=== PATIENT | female | born 1985 | race Caucasian/White ===

== ENCOUNTER 2024-02-20 10:18 | Emergency (ER) | payer OTHER, SELFPAY ==
[2024-02-20 10:27] VITALS: BP 116/89; PULSE 90; TEMP 37.4; O2SAT 97; BMI 34.9
[2024-02-20 10:58] LABS: Influenza Virus A Antigen Negative; Influenza Virus B Antigen Negative; Internal Control Within Normal Limits; SARS-CoV-2 Ag NEGATIVE (NEGATIVE)
--- NOTE | 2024-02-20 11:37 | XR_ITS ---
The [address] [address] Patient Name: CHERELLE PORTILLO MRN: [id number] date: 1985 Sex: F Assigned Patient Location: ER Current Patient Location: Accession/Order Number: [id number] Exam Date: 02/20/2024 11:56 Report Date: 02/20/2024 13:13 At the request of: ALLISON MONTALVO Procedure: XR chest 2V EXAMINATION: XR chest 2V HISTORY: sob COMPARISON: No relevant comparison available. TECHNIQUE: PA and lateral FINDINGS: LUNGS: No significant pulmonary parenchymal abnormalities. VASCULATURE: No increased pulmonary vasculature. PLEURA: No pneumothorax, effusion, or pleural thickening. CARDIAC: No cardiomegaly or cardiac silhouette abnormality. MEDIASTINUM: No visible mass or adenopathy. BONES: No fracture or visible bone lesion. OTHER: Negative. XR/XR chest 2V IMPRESSION: No acute cardiopulmonary abnormality Electronically authenticated by: HERNAN GALICIA Date: 02/20/2024 13:13
[2024-02-20 11:42] VITALS: BP 121/84; PULSE 94; TEMP 38.3; O2SAT 96
[2024-02-20] MEDS: ALBUTEROL SULFATE 2.5 MG/3 ML VIAL NEB IH (11:44)
[2024-02-20 11:45] VITALS: PULSE 82; O2SAT 96
--- NOTE | 2024-02-20 12:55 | ED.GENADUL1 ---
HPI HPI - General Adult General Chief complaint: Upper Respiratory Infection Stated complaint: FEVER/URTI COMPLAINTS Time Seen by Provider: 02/20/24 10:49 Source: patient Mode of arrival: walk-in History of Present Illness HPI narrative: Patient is a 38-year-old female who is presenting to the ER today with chief complaint cough, congestion, sore throat. This has been ongoing for 6 to 7 days. Patient states that she has been using Motrin, she is not a smoker. Patient has no headache at this time, no neck pain. Mild facial pressure to bilateral frontal and maxillary sinuses. Patient feels like there is crackling in coarseness to her upper airway. Patient has no abdominal pain, nausea or vomiting. Patient has no bowel or bladder changes. Patient has no rash. Patient states she does have albuterol inhaler at home. Patient's PCP is count includes the [facility]. Patient has no acute complaints at this time. No recent traveling. Patient is a auto cleaner, she has not inhaled any recent chemicals that are new or irritating. All systems are negative except as noted/marked. All systems reviewed and otherwise negative. Nurses note and vital signs reviewed and patient is not hypoxic. General: The patient appears well and in no apparent distress. Patient is resting comfortably on cart. Patient is not toxic, lethargic, or listless Skin: Warm, dry, no pallor noted. There is no rash noted. No petechiae, purpura. Head: Normocephalic, atraumatic;' patient has mild tenderness palpation to bilateral frontal and maxillary sinuses. Eye: Normal conjunctiva, no drainage, EOMI. PERRL Ears, Nose, Mouth, and Throat: oral mucosa is moist. Mild cobblestoning seen. Patient has clear drainage from the posterior pharynx, Nares patent. Mouth without vesicles. Cardiovascular: Regular Rate and Rhythm, no murmur, gallop, rub Respiratory: Patient is in no distress, no accessory muscle use, lungs are clear to auscultation, no wheezing, rales or rhonchi, minimal coarseness bilateral upper lungs equal, bilateral, possibly resonating from upper airway. Equal breath sounds. No tracheal deviation. No splinting. Back: non-tender, no CVA tenderness bilaterally to percussion. No CT LS midline pain GI: no tenderness to palpation, no masses appreciated. No rebound, guarding, or rigidity noted. No distention Musculoskeletal: Patient has full range of motion of all of the extremities, no motor, sensory, or focal neurological deficits Neurological: A&O x4, normal speech Psychiatric: Cooperative Related Data Previous Rx's ?Medication ?Instructions ?Recorded albuterol sulfate 90 mcg/actuation 2 inh inhalation Q4H PRN shortness 02/20/24 aerosol inhaler of breath or wheezing 7 days #8.5 grams benzonatate 100 mg capsule 100 mg PO TID PRN cough #21 caps 02/20/24 nstqkmavdzkmidt-eqjzlojcoacoscs-ID 10 ml PO Q6H PRN cold symptoms 02/20/24 2 mg-30 mg-10 mg/5 mL oral syrup #200 mL (Bromfed DM) Allergies Allergy/AdvReac Type Severity Reaction Status Date / Time No Known Drug Allergies Allergy Verified 02/20/24 10:31 Opioid HPI Opioid Management Most Recent Opioid Data: No Data to Display PFSH PFSH Social History Little interest or pleasure in doing things: not at all Feeling down, depressed, or hopeless: not at all Exam Constitutional Vital Signs, click to edit/add: Last Vital Signs Temp 101.0 F H 02/20/24 11:42 Pulse 82 02/20/24 11:45 Resp 16 02/20/24 11:45 BP 121/84 02/20/24 11:42 Pulse Ox 96 02/20/24 11:45 O2 Del Method Room Air 02/20/24 11:45 Course Vital Signs Vital signs: Vital Signs Temperature 99.3 F 02/20/24 10:27 Pulse Rate 90 02/20/24 10:27 Respiratory Rate 18 02/20/24 10:27 Blood Pressure 116/89 02/20/24 10:27 Pulse Oximetry 97 02/20/24 10:27 Oxygen Delivery Method Room Air 02/20/24 10:27 Temperature 101.0 F H 02/20/24 11:42 Pulse Rate 82 02/20/24 11:45 Respiratory Rate 16 02/20/24 11:45 Blood Pressure 121/84 02/20/24 11:42 Pulse Oximetry 96 02/20/24 11:45 Oxygen Delivery Method Room Air 02/20/24 11:45 Medical Decision Making MDM Narrative Medical decision making narrative: Patient's influenza and COVID swab are negative. Patient was given albuterol nebulizer that helped somewhat. Patient had a chest x-ray that shows no acute cardiopulmonary disease, no infiltrate, no effusion. Patient had education done multiple times at bedside that no acute indication antibiotic at this time. Patient was given a prescription for albuterol Hailer as a backup to the one that she has. Patient was given prescription for Tessalon Perles, Bromfed. Patient was again educated discharge with Norman RN at bedside as a witness that there is no acute indication for antibiotic when she asked if she is getting a prescription for antibiotic. Patient was given prescription for albuterol inhaler, Tessalon Perles, Bromfed. Patient understands all the itrl-cvc-gdiuutj prescriptions that she can take. No questions at discharge. Patient understands to call PCP today to make a follow-up appointment next 3 to 5 days for reevaluation Lab Data Labs: Lab Results 02/20/24 Range/Units 10:37 Influenza Type A Ag Negative Influenza Type B Ag Negative SARS-CoV-2 Ag (CV2AG) Negative (NEGATIVE) Discharge Plan Discharge Chief Complaint: Upper Respiratory Infection Clinical Impression: Bronchitis, Upper respiratory infection Patient Disposition: Home, Self-Care Time of Disposition Decision: 12:54 Condition: Fair Prescriptions / Home Meds: New benzonatate 100 mg capsule 100 mg PO TID PRN (Reason: cough) Qty: 21 0RF albuterol sulfate 90 mcg/actuation HFA aerosol inhaler 2 inh inhalation Q4H PRN (Reason: shortness of breath or wheezing) 7 Days Qty: 8.5 0RF zoiqojmkwumqkge-hqzlghfnz-EY [Bromfed DM] 2-30-10 mg/5 mL syrup 10 ml PO Q6H PRN (Reason: cold symptoms) Qty: 200 0RF Print Language: Ukrainian Instructions: How to Use a Metered-Dose Inhaler (ED), Acute Bronchitis (ED) Additional Instructions: Call your PCP today to make a follow-up appointment in the next 3 to 5 days for reevaluation Increase fluids at home, Gatorade, Powerade, or water. Alternate using DayQuil, NyQuil, and Flonase. Add Mucinex as well as needed. Alternate Tylenol and Motrin every 4 hours to help with fever control, body aches or joint pain. Use cjqc-rre-lmivhwx vitamin C, vitamin D3, and zinc to help fight infection and help with her immune system. Referrals: [facility] [Primary Care Provider] - 1 week
[2024-02-20 12:58] VITALS: PULSE 86; O2SAT 98
== END 2024-02-20 12:59 | disposition home or self-care (01) ==
PROVIDERS: Emergency Provider Emergency Medicine
DX: J06.9 Acute upper respiratory infection, unspecified (principal); J40 Bronchitis, not specified as acute or chronic; Z20.822 Contact with and (suspected) exposure to COVID-19
CPT/HCPCS: 71046; 87804; 87811; 94640; 99284